=== PATIENT | male | born 1965 | race Two or more races ===

== ENCOUNTER → 2019-08-02 | Outpatient (CLI) | payer OTHER | END | disposition home or self-care (01) | LOC: RAD 08:01 → SONOGRAMA 08:01 | DX: B18.2 Chronic viral hepatitis C (principal) ==

== ENCOUNTER 2019-08-26 06:41 | Outpatient (CLI) | payer OTHER | END 2019-08-26 06:48 | disposition home or self-care (01) | LOC: LAB 06:41 | DX: R74.0 Nonspecific elevation of levels of transaminase and lactic acid dehydrogenase [LDH] (principal) ==

== ENCOUNTER 2019-09-20 07:11 | Outpatient (CLI) | payer OTHER | END 2019-09-20 17:27 | disposition home or self-care (01) | LOC: LAB 07:11 | DX: R74.0 Nonspecific elevation of levels of transaminase and lactic acid dehydrogenase [LDH] (principal); B18.2 Chronic viral hepatitis C ==

== ENCOUNTER 2020-02-15 06:34 | Outpatient (CLI) | payer OTHER | END 2020-02-15 06:40 | disposition home or self-care (01) | LOC: LAB 06:34 | DX: B18.2 Chronic viral hepatitis C (principal) ==